=== PATIENT | male | born 1935 | race Caucasian/White ===

== ENCOUNTER 2016-12-11 22:07 | Emergency (ER) | payer OTHER ==
[~2016-12-11 22:07] MED LIST: ALLOPURINOL100 MG PO; ALLOPURINOL300 MG PO; AMLODIPINE BESYL5 M1 PO; ARICEPT5 MG PO; ASPIR 8181 MG PO; ASPIRIN ADULT L81 M4 PO; BACO TOP; CLARITIN10 MG PO; CLEOCIN HCL300 MG PO; CLONAZEPAM0.5 MG PO; COZ25 PO; COZAAR100 MG PO; COZAAR25 MG PO; DEPAKOTE ER250 M1 PO; DOXEPIN HCL10 MG PO; ESCITALOPRAM10 M1 PO; FAMOTIDINE20 MG PO; FERROUS SULFAT325 M2 PO; FLO4 PO; FLUOCINONIDE0.05% TOP; GLYCOLAX17 GM/Dose PO; GOOD SENSE ASPI81 M3 PO; HIBICLENS118 ML TOP; KETOCONAZOLE2% TOP; LAC PO; LEVAQUIN750 MG PO; LEXAPRO5 M1 PO; LORATADINE10 MG PO; LORAZEPAM0.5 MG PO; LORAZEPAM1 MG PO; LOVASTATIN20 MG PO; METOPROLOL SUCC25 M1 PO; METOPROLOL TART25 M1 PO; MIRALAX17 GM/Dose PO; MULTIVITAMIN1 SGL PO; NOR5 PO; PRA20 PO; SENNA8.6 M2 PO; SERO100 PO; SEROQUEL XR150 M1 PO; SEROQUEL50 M1 PO; SIMVASTATIN10 M1 PO; TAMSULOSIN HYD0.4 M1 PO; THI100 PO; TRIAMCINOLONE AC0.13 TOP; VIS25 PO; VITABESE1 CAP PO; VITAMIN B-11 TAB PO; VITAMIN C500 M4 PO; XARELTO STARTER20 MG PO; XARELTO10 M1 PO; ZOS3PM IV
[2016-12-12 03:13] VITALS: BP 122/56
== END 2016-12-12 03:13 | disposition home or self-care (01) ==
LOC: ED 22:07
DX: S63.502A Unspecified sprain of left wrist, initial encounter (principal); I10 Essential (primary) hypertension; W17.89XA Other fall from one level to another, initial encounter; Y93.89 Activity, other specified; Y92.89 Other specified places as the place of occurrence of the external cause; Y99.8 Other external cause status
CPT/HCPCS: 82962; Q0092